=== PATIENT | female | born 1965 | race Hispanic/Latino ===

== ENCOUNTER 2016-07-09 22:05 | Emergency (ER) | payer MEDICAID, OTHER ==
[2016-07-09 22:05] VITALS: BMI 25.6
[2016-07-09 22:14] VITALS: BP 111/72; PULSE 100; RESP 22; TEMP 97.9; O2SAT 89
[2016-07-09 23:38] LABS: BASO # 0.1 K/uL (0.0-0.2); BASO % 0.7 % (0.0-2.0); EOS # 0.1 K/uL (0.0-0.7); EOS % 1.1 % (0.0-4.0); HEMATOCRIT 44.6 % (34.0-47.0); LYMPH # 3.4 K/uL (1.0-4.3); LYMPH % 35.8 % (20.0-40.0); MEAN CELL VOLUME 96.6 fL (81.0-99.0); MEAN CORPUSCULAR HEMOGLOBIN 32.1 pg (27.0-31.0); MEAN CORPUSCULAR HGB CONC 33.2 g/dL (33.0-37.0); MEAN PLATELET VOLUME 7.8 fL (7.2-11.7); MONO # 1.2 K/uL (0.0-0.8); MONO % 12.8 % (0.0-10.0); RED CELL DISTRIBUTION WIDTH 15.2 % (11.5-14.5); WHITE BLOOD COUNT 9.5 K/uL (4.8-10.8)
[2016-07-09 23:46] LABS: CHLORIDE 96 mmol/L (98-107)
[2016-07-09 23:47] LABS: POTASSIUM 3.5 mmol/L (3.6-5.2); SODIUM 133 mmol/L (132-148)
[2016-07-09 23:49] LABS: ALB/GLOB RATIO 1.3 (1.0-2.1); AST/SGOT 24 U/L (14-36); BILIRUBIN,TOTAL 0.5 mg/dL (0.2-1.3); BLOOD UREA NITROGEN 5 mg/dL (7-17); CARBON DIOXIDE 25 mmol/L (22-30); GFR AFRICAN-AMERICAN > 60; TOTAL PROTEIN 6.7 g/dL (6.3-8.3)
[2016-07-09 23:50] LABS: ALCOHOL SERUM 287 mg/dl (0-10); ALKALINE PHOSPHATASE 76 U/L (38-126); ALT/SGPT 18 U/L (9-52); CALCIUM 8.1 mg/dl (8.6-10.4); GLUCOSE,RANDOM 102 mg/dL (65-105)
--- NOTE | 2016-07-10 07:55 | RAD ---
HISTORY: SOB COMPARISON: 01/25/2016 TECHNIQUE: Chest PA and lateral FINDINGS: LUNGS: No active pulmonary disease. PLEURA: No significant pleural effusion identified. No pneumothorax apparent. CARDIOVASCULAR: Normal. OSSEOUS STRUCTURES: Thoracic spondylosis VISUALIZED UPPER ABDOMEN: Normal. OTHER FINDINGS: None. IMPRESSION: No active disease.
--- NOTE | 2016-07-14 19:07 | C.PDOC ---
Chief Complaint (Nursing): Cough, Cold, Congestion History Per: Patient History/Exam Limitations: no limitations Onset/Duration Of Symptoms: Days Current Symptoms Are (Timing): Still Present Location Of Pain: None Sick Contacts (Context): None Associated Symptoms: Cough. denies: Fever, Chills, Sore Throat, Sputum Severity: Mild Pain Scale Rating Of: 0 Recent travel outside of the [place]: No Additional History Per: Patient Past Medical History Vital Signs: Last Vital Signs Temp 97.9 F 07/09/16 22:10 Pulse 100 H 07/09/16 22:10 Resp 22 07/09/16 22:10 BP 111/72 07/09/16 22:10 Pulse Ox 89 L 07/14/16 19:09 - Medical History PMH: Asthma, COPD, HTN, Hypercholesterolemia, Pneumonia, Seizures Denies: HIV, Chronic Kidney Disease, Sexually Transmitted Disease Surgical History: No Surg Hx - [facility] Procedures ALCOHOL DETOXIFICATION (07/04/14) INTRODUCE OF OTH THERAP SUBST INTO RESP TRACT, VIA OPENING (12/01/15) NEBULIZER THERAPY (05/12/14) Family History: States: Unknown Family Hx - Social History Hx Tobacco Use: Yes Hx Alcohol Use: Yes Hx Substance Use: No - Immunization History Hx Tetanus Toxoid Vaccination: No Hx Influenza Vaccination: Yes (2013) Hx Pneumococcal Vaccination: Yes Review Of Systems Cardiovascular: Negative for: Chest Pain, Palpitations, Orthopnea, Paroxysmal Noc. Dyspnea Respiratory: Positive for: Cough. Negative for: Shortness of Breath, Hemoptysis Gastrointestinal: Negative for: Nausea, Diarrhea Genitourinary: Negative for: Dysuria, Frequency Musculoskeletal: Negative for: Neck Pain, Shoulder Pain, Arm Pain Skin: Negative for: Rash Neurological: Negative for: Weakness, Numbness, Incoordination Psych: Negative for: Anxiety Physical Exam - Physical Exam Appears: Non-toxic Skin: Normal Color Head: Atraumatic Eye(s): bilateral: Normal Inspection, PERRL, EOMI Nose: Normal Throat: Normal Neck: Normal Chest: Symmetrical, No Deformity, No Tenderness, No Ecchymosis, No Subcutaneous Emphysema Cardiovascular: Rhythm Regular, No Edema, No Friction Rub, No Murmur Respiratory: Normal Breath Sounds Gastrointestinal/Abdominal: Normal Exam Back: Normal Inspection ED Course And Treatment - Laboratory Results Result Diagrams: 07/09/16 23:35 05/17/17 23:35 O2 Sat by Pulse Oximetry: 89 Disposition - Disposition Referrals: [facility] at [facility] [Outside] Disposition: HOME/ ROUTINE Disposition Time: 05:30 Condition: STABLE Instructions: Upper Respiratory Infection (ED) - POA Present On Arrival: None - Clinical Impression Clinical Impression: Asthma, Anxiety
== END 2016-07-10 05:30 | disposition home or self-care (01) ==
LOC: C.ER 22:05
DX: J45.909 Unspecified asthma, uncomplicated (principal); Z72.0 Tobacco use; F41.9 Anxiety disorder, unspecified

== ENCOUNTER 2016-07-16 12:48 | Inpatient (IN) | payer MEDICAID ==
[2016-07-16 12:48] VITALS: BMI 25.6
--- NOTE | 2016-07-16 13:00 | C.PDOC ---
History Of Present Illness 50-year-old female, PMHx includes Asthma, COPD, Hypertension, Hypercholesterolemia, Pneumonia, and Seizures, presents to the emergency department with complaints of a productive cough x2 weeks, that is associated with wheezing. Patient states she finished Levaquin two days ago, and her doctor put her on steroids yesterday. Patients home meds are not helping. Denies fevers, nausea/vomiting. No other complaints at this time. Time Seen by Provider: 07/16/16 12:59 Chief Complaint (Nursing): Shortness Of Breath History Per: Patient History/Exam Limitations: no limitations Onset/Duration Of Symptoms: Days Past Medical History Reviewed: Historical Data, Nursing Documentation, Vital Signs Vital Signs: Last Vital Signs Temp 98.0 F 07/16/16 12:56 Pulse 106 H 07/16/16 12:56 Resp 26 H 07/16/16 13:52 BP 129/90 07/16/16 12:56 Pulse Ox 89 L 07/16/16 14:21 - Medical History PMH: Asthma, COPD, HTN, Hypercholesterolemia, Pneumonia, Seizures Denies: HIV, Chronic Kidney Disease, Sexually [facility]mitted [facility] ALCOHOL DETOXIFICATION (07/04/14) INTRODUCE OF OTH THERAP SUBST INTO RESP TRACT, VIA OPENING (12/01/15) NEBULIZER THERAPY (05/12/14) Family History: States: No Known Family Hx - Social History Hx Tobacco Use: Yes Hx Alcohol Use: Yes Hx Substance Use: No - Immunization History Hx Tetanus Toxoid Vaccination: No Hx Influenza Vaccination: Yes (2013) Hx Pneumococcal Vaccination: Yes Review Of Systems Constitutional: Negative for: Fever Cardiovascular: Negative for: Chest Pain, Palpitations Respiratory: Positive for: Cough, Sputum, Wheezing Gastrointestinal: Negative for: Nausea, Vomiting Physical Exam - Physical Exam Appears: Non-toxic, No Acute Distress Skin: Warm, Dry, No Rash Head: Atraumatic Eye(s): bilateral: Normal Inspection, PERRL Nose: Normal Oral Mucosa: Moist Neck: Normal ROM Chest: Symmetrical Cardiovascular: Rhythm Regular, No Murmur Respiratory: No Accessory Muscle Use, Wheezing Extremity: Normal ROM Neurological/Psych: Oriented x3 ED Course And Treatment - Laboratory Results Result Diagrams: 07/16/16 13:42 07/16/16 13:42 O2 Sat by Pulse Oximetry: 89 Medical Decision Making Medical Decision Making: EKG Rate 95bpm Rhythm NSR Interpret Normal axis. Normal intervals. no acute ischemia. Chest x-ray: No acute findings. 1428 pt still w sig wheezing and sob despite duoneb x3. will admit for failed outpt rx of copd. Disposition - Disposition Disposition: HOSPITALIZED Disposition Time: 14:32 Condition: STABLE - Clinical Impression Clinical Impression: COPD exacerbation - Scribe Statement The provider has reviewed the documentation as recorded by the Estrella Butcher All medical record entries made by the Rhondaibnehemias were at my direction and personally dictated by me. I have reviewed the chart and agree that the record accurately reflects my personal performance of the history, physical exam, medical decision making, and the department course for this patient. I have also personally directed, reviewed, and agree with the discharge instructions and disposition.
[2016-07-16] MEDS ORDERED: Albuterol-Ipratrop 3 mg / 0.5 (3 ml) UD ONE ×3 (13:08→13:55)
[2016-07-16] MEDS ORDERED: Azithromycin 500 MG in Sodium Chloride 0.9% 250 ML IVPB STA (13:12)
[2016-07-16] MEDS: Albuterol-Ipratrop 3 mg / 0.5 (3 ml) UD IH SCH ×3 (13:30→13:55)
[2016-07-16] MEDS ORDERED: Azithromycin 500mg/250ML NS 500 MG/250 ML BAG IVPB ONE (13:34)
[2016-07-16 13:51] LABS: BASO % 0.2 % (0.0-2.0); EOS % 0.3 % (0.0-4.0); HEMATOCRIT 46.9 % (34.0-47.0); LYMPH # 3.9 K/uL (1.0-4.3); LYMPH % 29.4 % (20.0-40.0); MEAN CELL VOLUME 95.9 fL (81.0-99.0); MEAN CORPUSCULAR HEMOGLOBIN 32.5 pg (27.0-31.0); MEAN CORPUSCULAR HGB CONC 33.9 g/dL (33.0-37.0); MEAN PLATELET VOLUME 8.2 fL (7.2-11.7); MONO # 1.1 K/uL (0.0-0.8); MONO % 8.3 % (0.0-10.0); RED CELL DISTRIBUTION WIDTH 14.9 % (11.5-14.5); WHITE BLOOD COUNT 13.3 K/uL (4.8-10.8)
[2016-07-16 14:00] LABS: CHLORIDE 97 mmol/L (98-107); POTASSIUM 3.5 mmol/L (3.6-5.2); SODIUM 134 mmol/L (132-148)
--- NOTE | 2016-07-16 14:01 | RAD ---
HISTORY: sob COMPARISON: 07/09/2016 FINDINGS: LUNGS: No active pulmonary disease. PLEURA: No significant pleural effusion identified, no pneumothorax apparent. CARDIOVASCULAR: Normal. OSSEOUS STRUCTURES: No significant abnormalities. VISUALIZED UPPER ABDOMEN: Normal. OTHER FINDINGS: None. IMPRESSION: No active disease.
[2016-07-16 14:02] LABS: ALB/GLOB RATIO 1.3 (1.0-2.1); ALKALINE PHOSPHATASE 92 U/L (38-126); AST/SGOT 23 U/L (14-36); BILIRUBIN,TOTAL 0.9 mg/dL (0.2-1.3); CARBON DIOXIDE 28 mmol/L (22-30); GFR AFRICAN-AMERICAN > 60; TOTAL PROTEIN 6.6 g/dL (6.3-8.3)
[2016-07-16 14:03] LABS: ALT/SGPT 26 U/L (9-52); BLOOD UREA NITROGEN 16 mg/dL (7-17); GLUCOSE,RANDOM 92 mg/dL (65-105)
[2016-07-16 14:04] LABS: CALCIUM 8.8 mg/dl (8.6-10.4)
[2016-07-16] MEDS ORDERED: Albuterol 0.083% Inhal Sol (2.5 mg/3 mL) UD INH PRN (14:34)
[2016-07-16] MEDS ORDERED: Albuterol 0.083% Inhal Sol (2.5 mg/3 mL) UD INH SCH (16:00)
[2016-07-16] MEDS ORDERED: Ipratropium 0.02% Inhal Soln (0.5 mg/2.5 ml) UD IH ONE (17:16)
[2016-07-16] MEDS ORDERED: Albuterol 0.083% Inhal Sol (2.5 mg/3 mL) UD ONE (17:16)
[2016-07-16] MEDS ORDERED: Potassium Chloride 20 mEq ER Tab PO ONE ×2 (17:45→17:52)
[2016-07-16] MEDS ORDERED: Ipratropium 0.02% Inhal Soln (0.5 mg/2.5 ml) UD IH SCH (18:00)
[2016-07-16] MEDS: Albuterol-Ipratrop 3 mg / 0.5 (3 ml) UD INH SCH (21:34)
--- NOTE | 2016-07-17 00:09 | CP.PCM.HP ---
History of Present Illness - History of Present Illness History of Present Illness: CC: shortness of breath x 2 weeks HPI: 50-year-old white female, PMHx includes Asthma, COPD, chronic smoker, Hypertension, Hypercholesterolemia, Pneumonia, and Seizures, presents to the emergency department with complaints of a productive cough x2 weeks , that is associated with wheezing and thick greenish sputum Patient states she finished Levaquin two days ago, and her doctor put her on steroids yesterday. Patients home meds are not helping. Denies fevers, nausea/vomiting. No other complaints at this time. Present on Admission - Present on Admission Any Indicators Present on Admission: No Past Patient History - Infectious Disease Hx of Infectious Diseases: None - Past Medical History & Family History Past Medical History?: Yes - Past Social History Smoking Status: Heavy Smoker > 10 Cigarettes Daily - CARDIAC Hx Cardiac Disorders: No - PULMONARY Hx Asthma: Yes Hx Chronic Obstructive Pulmonary Disease (COPD): Yes Hx Pneumonia: Yes - NEUROLOGICAL Hx Neurological Disorder: No - HEENT Hx HEENT Problems: Yes Other/Comment: wear eyeglasses - RENAL Hx Chronic Kidney Disease: No - ENDOCRINE/METABOLIC Hx Endocrine Disorders: No - HEMATOLOGICAL/ONCOLOGICAL Hx Blood Disorders: No - INTEGUMENTARY Hx Dermatological Problems: No - MUSCULOSKELETAL/RHEUMATOLOGICAL Hx Falls: No - GASTROINTESTINAL Hx Gastrointestinal Disorders: No - GENITOURINARY/GYNECOLOGICAL Hx Genitourinary Disorders: No - PSYCHIATRIC Hx Substance Use: No - SURGICAL HISTORY Hx Surgeries: No - ANESTHESIA Hx Anesthesia: No Hx Anesthesia Reactions: No Hx Malignant Hyperthermia: No Has any member of the family had a problem w/ anesthesia?: No Meds Home Medications: Home Medication List Medication Instructions Recorded Confirmed Type Amoxicillin/Clavulanate [Augmentin 1 tab PO BID #14 tab 07/22/16 Rx 875 MG-125 MG] Fluticasone/Vilanterol [Breo 1 each IH DAILY #1 blst.w.dev 07/22/16 Rx Ellipta 100-25 Mcg INH] Guaifenesin [Mucinex] 1,200 mg PO BID #30 tab.er.12h 07/22/16 Rx Methylprednisolone [Medrol Dose 4 mg PO DAILY #21 mg 07/22/16 Rx Pack (21 tabs)] Allergies/Adverse Reactions: Allergies Allergy/AdvReac Type Severity Reaction Status Date / Time apple Allergy Severe ITCHING Verified 07/16/16 13:03 carrot Allergy Severe RASH Verified 07/16/16 20:47 peach Allergy Severe ITCHING Verified 07/16/16 13:03 peanut Allergy Severe ITCHING Verified 07/16/16 13:03 plum Allergy Severe ITCHING Verified 07/16/16 13:03 Physical Exam - Constitutional Appears: In Acute Distress Additional comments: poor hygeine in moderate resp distress shaking - Eye Exam Eye Exam: EOMI, Normal appearance, PERRL Pupil Exam: NORMAL ACCOMODATION, PERRL - ENT Exam ENT Exam: Mucous Membranes Dry - Neck Exam Neck exam: Positive for: Normal Inspection - Respiratory Exam Respiratory Exam: Decreased Breath Sounds, Rhonchi, Wheezes - Cardiovascular Exam Cardiovascular Exam: REGULAR RHYTHM - GI/Abdominal Exam GI & Abdominal Exam: Normal Bowel Sounds, Soft. absent: Tenderness - Neurological Exam Neurological exam: Alert, CN II-XII Intact, Normal Gait, Oriented x3, Reflexes Normal - Psychiatric Exam Psychiatric exam: Normal Affect, Normal Mood - Skin Skin Exam: Dry Additional comments: flushed skin Results - Vital Signs Recent Vital Signs: Last Vital Signs Temp 98.1 F 07/16/16 18:57 Pulse 88 07/16/16 18:57 Resp 20 07/16/16 18:57 BP 142/77 07/16/16 18:57 Pulse Ox 95 07/16/16 18:57 - Labs Result Diagrams: 07/20/16 10:05 07/20/16 10:05 Assessment & Plan (1) COPD exacerbation Assessment and Plan: nebulizer salmedrol advair pulmonary consult monitor pt Status: Acute
[2016-07-17] MEDS: Albuterol-Ipratrop 3 mg / 0.5 (3 ml) UD INH SCH ×4 (01:16→19:22)
[2016-07-17] MEDS ORDERED: Tiotropium 18 mcg Cap For Inhalation IH SCH (08:00)
[2016-07-17] MEDS: Enoxaparin 40 mg Syringe SC SCH (09:26)
[2016-07-17 16:29] VITALS: RESP 20
--- NOTE | 2016-07-17 16:57 | CP.PCM.CON ---
History of Present Illness - History of Present Illness History of Present Illness: reason for consultation: shortness of breath and cough 50-year-old female PMHx includes COPD, Hypertension, Hypercholesterolemia, Pneumonia, aand long history of smoking presents to the emergency department with complaints of a productive cough x2 weeks, that is associated with wheezing. Patient states she finished Levaquin two days ago, and her doctor put her on steroids yesterday. Review of Systems - Review of Systems All systems: reviewed and no additional remarkable complaints except (shortness of breath and cough productive of yellowish) Past Patient History - Infectious Disease Hx of Infectious Diseases: None - Past Medical History & Family History Past Medical History?: Yes - Past Social History Smoking Status: Heavy Smoker > 10 Cigarettes Daily - CARDIAC Hx Cardiac Disorders: No - PULMONARY Hx Asthma: Yes Hx Chronic Obstructive Pulmonary Disease (COPD): Yes Hx Pneumonia: Yes - NEUROLOGICAL Hx Neurological Disorder: No - HEENT Hx HEENT Problems: Yes Other/Comment: wear eyeglasses - RENAL Hx Chronic Kidney Disease: No - ENDOCRINE/METABOLIC Hx Endocrine Disorders: No - HEMATOLOGICAL/ONCOLOGICAL Hx Blood Disorders: No - INTEGUMENTARY Hx Dermatological Problems: No - MUSCULOSKELETAL/RHEUMATOLOGICAL Hx Falls: No - GASTROINTESTINAL Hx Gastrointestinal Disorders: No - GENITOURINARY/GYNECOLOGICAL Hx Genitourinary Disorders: No - PSYCHIATRIC Hx Substance Use: No - SURGICAL HISTORY Hx Surgeries: No - ANESTHESIA Hx Anesthesia: No Hx Anesthesia Reactions: No Hx Malignant Hyperthermia: No Has any member of the family had a problem w/ anesthesia?: No Meds Allergies/Adverse Reactions: Allergies Allergy/AdvReac Type Severity Reaction Status Date / Time apple Allergy Severe ITCHING Verified 07/16/16 13:03 carrot Allergy Severe RASH Verified 07/16/16 20:47 peach Allergy Severe ITCHING Verified 07/16/16 13:03 peanut Allergy Severe ITCHING Verified 07/16/16 13:03 plum Allergy Severe ITCHING Verified 07/16/16 13:03 - Medications Medications: Current Medications Albuterol/Ipratropium (Duoneb 3 Mg/0.5 Mg (3 Ml) Ud) 3 ml INH RQ6 [facility] Last Admin: 07/17/16 13:25 Dose: 3 ml Enoxaparin Sodium (Lovenox) 40 mg SC DAILY [facility] Last Admin: 07/17/16 09:26 Dose: 40 mg Azithromycin (Zithromax 500mg In Ns Addvantage) 500 mg in 250 mls @ 167 mls/hr IVPB Q24H [facility] Ceftriaxone Sodium 1 gm/ (Sodium Chloride) 100 mls @ 100 mls/hr IVPB DAILY [facility] Last Admin: 07/17/16 09:26 Dose: 100 mls/hr Methylprednisolone (Solu-Medrol) 40 mg IVP Q8 [facility] Montelukast Sodium (Singulair) 10 mg PO DAILY [facility] Last Admin: 07/17/16 09:26 Dose: 10 mg Pantoprazole Sodium (Protonix Inj) 40 mg IVP DAILY [facility] Last Admin: 07/17/16 09:26 Dose: 40 mg Tiotropium [place] (Spiriva) 18 mcg IH RQD [facility] Physical Exam - Constitutional Appears: No Acute Distress - Head Exam Head Exam: ATRAUMATIC, NORMOCEPHALIC - Eye Exam Eye Exam: Normal appearance - ENT Exam ENT Exam: Mucous Membranes Moist - Neck Exam Neck exam: Positive for: Full Rom, Normal Inspection - Respiratory Exam Respiratory Exam: Rhonchi, Wheezes - Cardiovascular Exam Cardiovascular Exam: REGULAR RHYTHM Results - Vital Signs Recent Vital Signs: Last Vital Signs Temp 98.7 F 07/17/16 15:14 Pulse 80 07/17/16 15:14 Resp 20 07/17/16 15:14 BP 126/70 07/17/16 15:14 Pulse Ox 97 07/17/16 15:14 - Labs Result Diagrams: 07/16/16 13:42 07/16/16 13:42 Assessment & Plan (1) COPD exacerbation Status: Acute Comment: continue IV steroids, antibiotics, nebulizer treatment and antitussives. Will need pulmonary function test as outpatient. Patient advised to quit smoking
[2016-07-17] MEDS ORDERED: Azithromycin 500mg/250ML NS 500 MG/250 ML BAG IVPB SCH (18:00)
[2016-07-17] MEDS: MethylPREDNISolone 40 mg Vial IVP SCH (21:31)
--- NOTE | 2016-07-17 22:50 | CP.PCM.PN ---
Subjective - Date & Time of Evaluation Date of Evaluation: 07/17/16 Time of Evaluation: 12:07 - Subjective Subjective: Pt is coughing, congested with greenish sputum ,pt is on antibiotics Objective - Vital Signs/Intake and Output Vital Signs (last 24 hours): Temp Pulse Resp BP Pulse Ox 98.7 F 80 20 126/70 97 07/17/16 15:14 07/17/16 15:14 07/17/16 15:14 07/17/16 15:14 07/17/16 15:14 - Medications Medications: Current Medications Albuterol/Ipratropium (Duoneb 3 Mg/0.5 Mg (3 Ml) Ud) 3 ml INH RQ6 [facility] Last Admin: 07/17/16 19:22 Dose: 3 ml Enoxaparin Sodium (Lovenox) 40 mg SC DAILY [facility] Last Admin: 07/17/16 09:26 Dose: 40 mg Azithromycin (Zithromax 500mg In Ns Addvantage) 500 mg in 250 mls @ 167 mls/hr IVPB Q24H [facility] Last Admin: 07/17/16 17:37 Dose: 167 mls/hr Ceftriaxone Sodium 1 gm/ (Sodium Chloride) 100 mls @ 100 mls/hr IVPB DAILY [facility] Last Admin: 07/17/16 09:26 Dose: 100 mls/hr Methylprednisolone (Solu-Medrol) 40 mg IVP Q8 [facility] Last Admin: 07/17/16 21:31 Dose: 40 mg Montelukast Sodium (Singulair) 10 mg PO DAILY [facility] Last Admin: 07/17/16 09:26 Dose: 10 mg Pantoprazole Sodium (Protonix Inj) 40 mg IVP DAILY [facility] Last Admin: 07/17/16 09:26 Dose: 40 mg Tiotropium [place] (Spiriva) 18 mcg IH RQD [facility] - Constitutional Appears: No Acute Distress - Head Exam Head Exam: ATRAUMATIC, NORMAL INSPECTION, NORMOCEPHALIC - Eye Exam Eye Exam: EOMI, Normal appearance, PERRL Pupil Exam: NORMAL ACCOMODATION, PERRL - Respiratory Exam Respiratory Exam: Clear to Ausculation Bilateral, NORMAL BREATHING PATTERN - Cardiovascular Exam Cardiovascular Exam: REGULAR RHYTHM, +S1, +S2. absent: Murmur - GI/Abdominal Exam GI & Abdominal Exam: Soft, Normal Bowel Sounds. absent: Tenderness - Neurological Exam Neurological Exam: Alert, Awake, CN II-XII Intact, Normal Gait, Oriented x3 Assessment and Plan (1) COPD exacerbation Status: Acute
--- NOTE | 2016-07-17 23:00 | CARD ---
APPROVED REPORT EKG Measurement Heart [id number] [id number] <Conclusion> Normal sinus rhythm Possible Left atrial enlargement Prolonged QT Abnormal ECG
[2016-07-18] MEDS: Albuterol-Ipratrop 3 mg / 0.5 (3 ml) UD INH SCH ×4 (01:10→19:56)
[2016-07-18] MEDS: MethylPREDNISolone 40 mg Vial IVP SCH ×3 (05:09→21:09)
[2016-07-18] MEDS: Enoxaparin 40 mg Syringe SC SCH (09:15)
--- NOTE | 2016-07-18 12:49 | CP.PCM.PN ---
Subjective - Date & Time of Evaluation Date of Evaluation: 07/18/16 Time of Evaluation: 08:30 - Subjective Subjective: patient seen and examined. Still complaining of shtness of breath and cough Could not sleep last night because of cough Objective - Vital Signs/Intake and Output Vital Signs (last 24 hours): Temp Pulse Resp BP Pulse Ox 97.7 F 70 20 160/90 H 95 07/18/16 08:36 07/18/16 08:36 07/18/16 08:36 07/18/16 08:36 07/18/16 08:36 Intake and Output: 07/18/16 07/18/16 06:59 18:59 Intake Total 800 Balance 800 - Medications Medications: Current Medications Albuterol/Ipratropium (Duoneb 3 Mg/0.5 Mg (3 Ml) Ud) 3 ml INH RQ6 [facility] Last Admin: 07/18/16 07:47 Dose: 3 ml Enoxaparin Sodium (Lovenox) 40 mg SC DAILY [facility] Last Admin: 07/18/16 09:15 Dose: 40 mg Guaifenesin (Robitussin) 200 mg PO Q4H PRN PRN Reason: Cough and congestion Ceftriaxone Sodium 1 gm/ (Sodium Chloride) 100 mls @ 100 mls/hr IVPB DAILY [facility] Last Admin: 07/18/16 09:16 Dose: 100 mls/hr Azithromycin 500 mg/ Sodium (Chloride) 250 mls @ 167 mls/hr IVPB Q24H [facility] Methylprednisolone (Solu-Medrol) 40 mg IVP Q8 [facility] Last Admin: 07/18/16 05:09 Dose: 40 mg Montelukast Sodium (Singulair) 10 mg PO DAILY [facility] Last Admin: 07/18/16 09:16 Dose: 10 mg Pantoprazole Sodium (Protonix Inj) 40 mg IVP DAILY [facility] Last Admin: 07/18/16 09:16 Dose: 40 mg Tiotropium [place] (Spiriva) 18 mcg IH RQD [facility] - Constitutional Appears: No Acute Distress - Head Exam Head Exam: ATRAUMATIC, NORMOCEPHALIC - Eye Exam Eye Exam: Normal appearance - ENT Exam ENT Exam: Mucous Membranes Moist - Neck Exam Neck Exam: Full ROM, Normal Inspection - Respiratory Exam Respiratory Exam: Rhonchi, Wheezes - Cardiovascular Exam Cardiovascular Exam: REGULAR RHYTHM - GI/Abdominal Exam GI & Abdominal Exam: Soft, Normal Bowel Sounds Assessment and Plan (1) COPD exacerbation Assessment & Plan: continue IV steroids,, nebulizer treatment, antitussive and antibiotics Status: Acute
[2016-07-18] MEDS: guaiFENesin 200 mg/10 ml Syrup UD PO PRN (13:35)
[2016-07-18] MEDS: Azithromycin 500 MG in Sodium Chloride 0.9% 250 ML IVPB SCH (17:39)
--- NOTE | 2016-07-18 22:55 | CP.PCM.PN ---
Subjective - Date & Time of Evaluation Date of Evaluation: 07/18/16 Time of Evaluation: 07:36 - Subjective Subjective: Pt seen & evalauted, is feeling better, on medical management Objective - Vital Signs/Intake and Output Vital Signs (last 24 hours): Temp Pulse Resp BP Pulse Ox 98.6 F 68 20 133/76 94 L 07/18/16 17:00 07/18/16 17:00 07/18/16 17:00 07/18/16 17:00 07/18/16 17:00 - Medications Medications: Current Medications Albuterol/Ipratropium (Duoneb 3 Mg/0.5 Mg (3 Ml) Ud) 3 ml INH RQ6 [facility] Last Admin: 07/18/16 19:56 Dose: 3 ml Enoxaparin Sodium (Lovenox) 40 mg SC DAILY [facility] Last Admin: 07/18/16 09:15 Dose: 40 mg Guaifenesin (Robitussin) 200 mg PO Q4H PRN PRN Reason: Cough and congestion Last Admin: 07/18/16 13:35 Dose: 200 mg Ceftriaxone Sodium 1 gm/ (Sodium Chloride) 100 mls @ 100 mls/hr IVPB DAILY [facility] Last Admin: 07/18/16 09:16 Dose: 100 mls/hr Azithromycin 500 mg/ Sodium (Chloride) 250 mls @ 167 mls/hr IVPB Q24H [facility] Last Admin: 07/18/16 17:39 Dose: 167 mls/hr Methylprednisolone (Solu-Medrol) 40 mg IVP Q8 [facility] Last Admin: 07/18/16 21:09 Dose: 40 mg Montelukast Sodium (Singulair) 10 mg PO DAILY [facility] Last Admin: 07/18/16 09:16 Dose: 10 mg Pantoprazole Sodium (Protonix Inj) 40 mg IVP DAILY [facility] Last Admin: 07/18/16 09:16 Dose: 40 mg Tiotropium [place] (Spiriva) 18 mcg IH RQD [facility] - Constitutional Appears: Well - Head Exam Head Exam: NORMAL INSPECTION - Eye Exam Eye Exam: EOMI, Normal appearance, PERRL Pupil Exam: NORMAL ACCOMODATION, PERRL - Respiratory Exam Respiratory Exam: Decreased Breath Sounds, Rhonchi - Cardiovascular Exam Cardiovascular Exam: REGULAR RHYTHM, +S1, +S2. absent: Murmur - GI/Abdominal Exam GI & Abdominal Exam: Soft, Normal Bowel Sounds. absent: Tenderness Assessment and Plan (1) COPD exacerbation Status: Acute
[2016-07-19] MEDS: Albuterol-Ipratrop 3 mg / 0.5 (3 ml) UD INH SCH ×4 (01:24→19:46)
[2016-07-19] MEDS: MethylPREDNISolone 40 mg Vial IVP SCH ×3 (05:40→21:09)
[2016-07-19] MEDS: guaiFENesin 200 mg/10 ml Syrup UD PO PRN ×3 (09:31→21:09)
[2016-07-19] MEDS: Enoxaparin 40 mg Syringe SC SCH (09:31)
[2016-07-19] MEDS: guaiFENesin 600 mg ER Tab PO SCH (17:27)
[2016-07-19] MEDS: Azithromycin 500 MG in Sodium Chloride 0.9% 250 ML IVPB SCH (17:27)
--- NOTE | 2016-07-19 23:31 | CP.PCM.PN ---
Subjective - Date & Time of Evaluation Date of Evaluation: 07/19/16 Time of Evaluation: 07:38 - Subjective Subjective: Pt seen and ecamined, is coughing and wheezing, less short of breath Objective - Vital Signs/Intake and Output Vital Signs (last 24 hours): Temp Pulse Resp BP Pulse Ox 98.2 F 81 20 136/80 95 07/19/16 16:33 07/19/16 16:33 07/19/16 16:33 07/19/16 16:33 07/19/16 16:33 Intake and Output: 07/19/16 07/20/16 18:59 06:59 Intake Total 900 Balance 900 - Medications Medications: Current Medications Albuterol/Ipratropium (Duoneb 3 Mg/0.5 Mg (3 Ml) Ud) 3 ml INH RQ6 [facility] Last Admin: 07/19/16 19:46 Dose: 3 ml Enoxaparin Sodium (Lovenox) 40 mg SC DAILY [facility] Last Admin: 07/19/16 09:31 Dose: 40 mg Guaifenesin (Robitussin) 200 mg PO Q4H PRN PRN Reason: Cough and congestion Last Admin: 07/19/16 21:09 Dose: 200 mg Guaifenesin (Mucinex [place]) 600 mg PO BID [facility] Last Admin: 07/19/16 17:27 Dose: 600 mg Ceftriaxone Sodium 1 gm/ (Sodium Chloride) 100 mls @ 100 mls/hr IVPB DAILY [facility] Last Admin: 07/19/16 09:31 Dose: 100 mls/hr Azithromycin 500 mg/ Sodium (Chloride) 250 mls @ 167 mls/hr IVPB Q24H [facility] Last Admin: 07/19/16 17:27 Dose: 167 mls/hr Methylprednisolone (Solu-Medrol) 40 mg IVP Q8 [facility] Last Admin: 07/19/16 21:09 Dose: 40 mg Montelukast Sodium (Singulair) 10 mg PO DAILY [facility] Last Admin: 07/19/16 09:32 Dose: 10 mg Pantoprazole Sodium (Protonix Inj) 40 mg IVP DAILY [facility] Last Admin: 07/19/16 09:32 Dose: 40 mg Tiotropium [place] (Spiriva) 18 mcg IH RQD [facility] - Constitutional Appears: No Acute Distress - Head Exam Head Exam: ATRAUMATIC, NORMAL INSPECTION, NORMOCEPHALIC - Eye Exam Eye Exam: EOMI, Normal appearance, PERRL Pupil Exam: NORMAL ACCOMODATION, PERRL - Respiratory Exam Respiratory Exam: Decreased Breath Sounds, Rhonchi, Wheezes - Cardiovascular Exam Cardiovascular Exam: REGULAR RHYTHM, +S1, +S2. absent: Murmur - GI/Abdominal Exam GI & Abdominal Exam: Soft, Normal Bowel Sounds. absent: Tenderness Assessment and Plan (1) COPD exacerbation Status: Acute
[2016-07-20] MEDS: Albuterol-Ipratrop 3 mg / 0.5 (3 ml) UD INH SCH ×4 (01:45→19:33)
[2016-07-20] MEDS: MethylPREDNISolone 40 mg Vial IVP SCH ×3 (05:57→22:23)
[2016-07-20] MEDS: Enoxaparin 40 mg Syringe SC SCH (09:14)
[2016-07-20] MEDS: guaiFENesin 600 mg ER Tab PO SCH ×2 (09:15→17:33)
[2016-07-20 10:10] LABS: HEMATOCRIT 46.6 % (34.0-47.0); MEAN CELL VOLUME 96.9 fL (81.0-99.0); MEAN CORPUSCULAR HGB CONC 33.1 g/dL (33.0-37.0); MEAN PLATELET VOLUME 9.2 fL (7.2-11.7); RED CELL DISTRIBUTION WIDTH 14.8 % (11.5-14.5); WHITE BLOOD COUNT 15.6 K/uL (4.8-10.8)
[2016-07-20 10:22] LABS: CHLORIDE 95 mmol/L (98-107); POTASSIUM 3.8 mmol/L (3.6-5.2); SODIUM 133 mmol/L (132-148)
[2016-07-20 10:25] LABS: BLOOD UREA NITROGEN 20 mg/dL (7-17); CARBON DIOXIDE 31 mmol/L (22-30); GFR AFRICAN-AMERICAN > 60; GLUCOSE,RANDOM 167 mg/dL (65-105)
[2016-07-20 10:26] LABS: CALCIUM 8.3 mg/dl (8.6-10.4)
--- NOTE | 2016-07-20 10:42 | RAD ---
HISTORY: Pneumonia. COMPARISON: 07/16/2016. TECHNIQUE: Chest PA and lateral FINDINGS: LUNGS: No active pulmonary disease. PLEURA: No significant pleural effusion identified. No pneumothorax apparent. CARDIOVASCULAR: No radiographic findings to suggest acute or significant cardiovascular disease. OSSEOUS STRUCTURES: No significant abnormalities. VISUALIZED UPPER ABDOMEN: Normal. OTHER FINDINGS: None. IMPRESSION: No active disease. No significant interval change compared to the prior examination(s).
--- NOTE | 2016-07-20 12:01 | CP.PCM.PN ---
Subjective - Date & Time of Evaluation Date of Evaluation: 07/20/16 Time of Evaluation: 07:39 - Subjective Subjective: Pt seen & evaluated, is feeling better Objective - Vital Signs/Intake and Output Vital Signs (last 24 hours): Temp Pulse Resp BP Pulse Ox 98.1 F 62 20 165/87 H 96 07/20/16 08:25 07/20/16 08:25 07/20/16 08:25 07/20/16 08:25 07/20/16 08:25 Intake and Output: 07/20/16 07/20/16 06:59 18:59 Intake Total 1260 Balance 1260 - Medications Medications: Current Medications Albuterol/Ipratropium (Duoneb 3 Mg/0.5 Mg (3 Ml) Ud) 3 ml INH RQ6 [facility] Last Admin: 07/20/16 07:28 Dose: 3 ml Enoxaparin Sodium (Lovenox) 40 mg SC DAILY [facility] Last Admin: 07/20/16 09:14 Dose: 40 mg Guaifenesin (Robitussin) 200 mg PO Q4H PRN PRN Reason: Cough and congestion Last Admin: 07/19/16 21:09 Dose: 200 mg Guaifenesin (Mucinex La) 600 mg PO BID [facility] Last Admin: 07/20/16 09:15 Dose: 600 mg Ceftriaxone Sodium 1 gm/ (Sodium Chloride) 100 mls @ 100 mls/hr IVPB DAILY [facility] Last Admin: 07/20/16 09:14 Dose: 100 mls/hr Azithromycin 500 mg/ Sodium (Chloride) 250 mls @ 167 mls/hr IVPB Q24H [facility] Last Admin: 07/19/16 17:27 Dose: 167 mls/hr Methylprednisolone (Solu-Medrol) 40 mg IVP Q8 [facility] Last Admin: 07/20/16 05:57 Dose: 40 mg Montelukast Sodium (Singulair) 10 mg PO DAILY [facility] Last Admin: 07/20/16 09:15 Dose: 10 mg Pantoprazole Sodium (Protonix Inj) 40 mg IVP DAILY [facility] Last Admin: 07/20/16 09:15 Dose: 40 mg Tiotropium [place] (Spiriva) 18 mcg IH RQD [facility] - Labs Labs: 07/20/16 10:05 07/20/16 10:05 - Constitutional Appears: No Acute Distress - Eye Exam Eye Exam: EOMI, Normal appearance, PERRL Pupil Exam: PERRL - Respiratory Exam Respiratory Exam: Decreased Breath Sounds, Rales, Rhonchi - Cardiovascular Exam Cardiovascular Exam: REGULAR RHYTHM, +S1, +S2. absent: Murmur - GI/Abdominal Exam GI & Abdominal Exam: Soft, Normal Bowel Sounds. absent: Tenderness - Rectal Exam Rectal Exam: NORMAL INSPECTION Assessment and Plan (1) COPD exacerbation Status: Acute
--- NOTE | 2016-07-20 14:00 | CP.PCM.PN ---
Subjective - Date & Time of Evaluation Date of Evaluation: 07/20/16 Time of Evaluation: 09:00 - Subjective Subjective: Patient seen and examined. Still complaining of shortness of breath and cough Afebrile with no chest pain Objective - Vital Signs/Intake and Output Vital Signs (last 24 hours): Temp Pulse Resp BP Pulse Ox 98.1 F 62 20 165/87 H 96 07/20/16 08:25 07/20/16 08:25 07/20/16 08:25 07/20/16 08:25 07/20/16 08:25 Intake and Output: 07/20/16 07/20/16 06:59 18:59 Intake Total 1260 Balance 1260 - Medications Medications: Current Medications Albuterol/Ipratropium (Duoneb 3 Mg/0.5 Mg (3 Ml) Ud) 3 ml INH RQ6 [facility] Last Admin: 07/20/16 13:36 Dose: 3 ml Enoxaparin Sodium (Lovenox) 40 mg SC DAILY [facility] Last Admin: 07/20/16 09:14 Dose: 40 mg Guaifenesin (Robitussin) 200 mg PO Q4H PRN PRN Reason: Cough and congestion Last Admin: 07/19/16 21:09 Dose: 200 mg Guaifenesin (Mucinex La) 600 mg PO BID [facility] Last Admin: 07/20/16 09:15 Dose: 600 mg Ceftriaxone Sodium 1 gm/ (Sodium Chloride) 100 mls @ 100 mls/hr IVPB DAILY [facility] Last Admin: 07/20/16 09:14 Dose: 100 mls/hr Azithromycin 500 mg/ Sodium (Chloride) 250 mls @ 167 mls/hr IVPB Q24H [facility] Last Admin: 07/19/16 17:27 Dose: 167 mls/hr Methylprednisolone (Solu-Medrol) 40 mg IVP Q8 [facility] Last Admin: 07/20/16 13:46 Dose: 40 mg Montelukast Sodium (Singulair) 10 mg PO DAILY [facility] Last Admin: 07/20/16 09:15 Dose: 10 mg Pantoprazole Sodium (Protonix Inj) 40 mg IVP DAILY [facility] Last Admin: 07/20/16 09:15 Dose: 40 mg Tiotropium [place] (Spiriva) 18 mcg IH RQD [facility] - Labs Labs: 07/20/16 10:05 07/20/16 10:05 - Constitutional Appears: No Acute Distress - Head Exam Head Exam: ATRAUMATIC, NORMOCEPHALIC - Eye Exam Eye Exam: Normal appearance - ENT Exam ENT Exam: Mucous Membranes Moist - Neck Exam Neck Exam: Normal Inspection - Respiratory Exam Respiratory Exam: Rhonchi - Cardiovascular Exam Cardiovascular Exam: REGULAR RHYTHM - GI/Abdominal Exam GI & Abdominal Exam: Soft, Normal Bowel Sounds Assessment and Plan (1) COPD exacerbation Assessment & Plan: Continue IV steroids, nebulizer treatment and antibiotics for now Status: Acute
[2016-07-20] MEDS: Azithromycin 500 MG in Sodium Chloride 0.9% 250 ML IVPB SCH (17:33)
[2016-07-21] MEDS: Albuterol-Ipratrop 3 mg / 0.5 (3 ml) UD INH SCH ×4 (01:49→19:18)
[2016-07-21] MEDS: MethylPREDNISolone 40 mg Vial IVP SCH ×3 (05:40→21:24)
[2016-07-21] MEDS: guaiFENesin 600 mg ER Tab PO SCH ×2 (09:39→17:12)
[2016-07-21] MEDS: Enoxaparin 40 mg Syringe SC SCH (09:39)
[2016-07-21] MEDS: guaiFENesin 200 mg/10 ml Syrup UD PO PRN ×2 (14:19→21:24)
[2016-07-21] MEDS: Azithromycin 500 MG in Sodium Chloride 0.9% 250 ML IVPB SCH (17:12)
--- NOTE | 2016-07-21 23:44 | CP.PCM.PN ---
Subjective - Date & Time of Evaluation Date of Evaluation: 07/21/16 Time of Evaluation: 07:41 - Subjective Subjective: Pt seen & examined at bedside, is improving Objective - Vital Signs/Intake and Output Vital Signs (last 24 hours): Temp Pulse Resp BP Pulse Ox 97.9 F 76 20 123/71 94 L 07/21/16 15:35 07/21/16 15:35 07/21/16 15:35 07/21/16 15:35 07/21/16 15:35 Intake and Output: 07/21/16 07/22/16 18:59 06:59 Intake Total 700 570 Output Total 1 Balance 700 569 - Medications Medications: Current Medications Albuterol/Ipratropium (Duoneb 3 Mg/0.5 Mg (3 Ml) Ud) 3 ml INH RQ6 [facility] Enoxaparin Sodium (Lovenox) 40 mg SC DAILY [facility] Last Admin: 07/21/16 09:39 Dose: 40 mg Guaifenesin (Robitussin) 200 mg PO Q4H PRN PRN Reason: Cough and congestion Last Admin: 07/21/16 21:24 Dose: 200 mg Guaifenesin (Mucinex La) 600 mg PO BID [facility] Last Admin: 07/21/16 17:12 Dose: 600 mg Ceftriaxone Sodium 1 gm/ (Sodium Chloride) 100 mls @ 100 mls/hr IVPB DAILY [facility] Last Admin: 07/21/16 09:38 Dose: 100 mls/hr Azithromycin 500 mg/ Sodium (Chloride) 250 mls @ 167 mls/hr IVPB Q24H [facility] Last Admin: 07/21/16 17:12 Dose: 167 mls/hr Methylprednisolone (Solu-Medrol) 40 mg IVP Q8 [facility] Last Admin: 07/21/16 21:24 Dose: 40 mg Montelukast Sodium (Singulair) 10 mg PO DAILY [facility] Last Admin: 07/21/16 09:39 Dose: 10 mg Pantoprazole Sodium (Protonix Inj) 40 mg IVP DAILY [facility] Last Admin: 07/21/16 09:39 Dose: 40 mg Tiotropium [place] (Spiriva) 18 mcg IH RQD [facility] - Labs Labs: 07/20/16 10:05 07/20/16 10:05 - Constitutional Appears: No Acute Distress - Head Exam Head Exam: ATRAUMATIC, NORMAL INSPECTION, NORMOCEPHALIC - ENT Exam ENT Exam: Mucous Membranes Moist, Normal Exam - Neck Exam Neck Exam: Full ROM, Normal Inspection. absent: Lymphadenopathy - Respiratory Exam Respiratory Exam: Clear to Ausculation Bilateral, NORMAL BREATHING PATTERN - Cardiovascular Exam Cardiovascular Exam: REGULAR RHYTHM, +S1, +S2. absent: Murmur - GI/Abdominal Exam GI & Abdominal Exam: Soft, Normal Bowel Sounds. absent: Tenderness Assessment and Plan (1) COPD exacerbation Status: Acute
[2016-07-22] MEDS: Albuterol-Ipratrop 3 mg / 0.5 (3 ml) UD INH SCH ×3 (01:07→13:38)
[2016-07-22] MEDS ORDERED: Albuterol-Ipratrop 3 mg / 0.5 (3 ml) UD INH SCH (02:00)
[2016-07-22] MEDS: MethylPREDNISolone 40 mg Vial IVP SCH ×2 (05:28→13:32)
[2016-07-22] MEDS: guaiFENesin 600 mg ER Tab PO SCH ×2 (09:48→17:23)
[2016-07-22] MEDS: Enoxaparin 40 mg Syringe SC SCH (09:48)
[2016-07-22 15:19] VITALS: BP 123/73; PULSE 80; TEMP 98.7; O2SAT 94
--- NOTE | 2016-07-22 16:22 | CP.PCM.PN ---
Subjective - Date & Time of Evaluation Date of Evaluation: 07/22/16 Time of Evaluation: 08:40 - Subjective Subjective: Patient seen and examined. Sitting comfortably in no acute distress Cough and shortness of breath much improved Afebrile Objective - Vital Signs/Intake and Output Vital Signs (last 24 hours): Temp Pulse Resp BP Pulse Ox 98.7 F 80 20 123/73 94 L 07/22/16 15:17 07/22/16 15:17 07/22/16 15:17 07/22/16 15:17 07/22/16 15:17 Intake and Output: 07/22/16 07/22/16 06:59 18:59 Intake Total 670 700 Output Total 1 Balance 669 700 - Medications Medications: Current Medications Albuterol/Ipratropium (Duoneb 3 Mg/0.5 Mg (3 Ml) Ud) 3 ml INH RQ6 [facility] Last Admin: 07/22/16 13:38 Dose: 3 ml Enoxaparin Sodium (Lovenox) 40 mg SC DAILY [facility] Last Admin: 07/22/16 09:48 Dose: 40 mg Guaifenesin (Robitussin) 200 mg PO Q4H PRN PRN Reason: Cough and congestion Last Admin: 07/21/16 21:24 Dose: 200 mg Guaifenesin (Mucinex La) 600 mg PO BID [facility] Last Admin: 07/22/16 09:48 Dose: 600 mg Azithromycin 500 mg/ Sodium (Chloride) 250 mls @ 167 mls/hr IVPB Q24H [facility] Last Admin: 07/21/16 17:12 Dose: 167 mls/hr Methylprednisolone (Solu-Medrol) 40 mg IVP Q8 [facility] Last Admin: 07/22/16 13:32 Dose: 40 mg Montelukast Sodium (Singulair) 10 mg PO DAILY [facility] Last Admin: 07/22/16 09:48 Dose: 10 mg Pantoprazole Sodium (Protonix Inj) 40 mg IVP DAILY [facility] Last Admin: 07/22/16 09:48 Dose: 40 mg Tiotropium [place] (Spiriva) 18 mcg IH RQD [facility] - Labs Labs: 07/20/16 10:05 07/20/16 10:05 - Head Exam Head Exam: ATRAUMATIC, NORMOCEPHALIC - Eye Exam Eye Exam: Normal appearance - ENT Exam ENT Exam: Mucous Membranes Moist - Neck Exam Neck Exam: Normal Inspection - Respiratory Exam Respiratory Exam: Rhonchi - Cardiovascular Exam Cardiovascular Exam: REGULAR RHYTHM - GI/Abdominal Exam GI & Abdominal Exam: Soft, Normal Bowel Sounds Assessment and Plan (1) COPD exacerbation Assessment & Plan: Condition much improved Stable from pulmonary standpoint Discharge home on by mouth prednisone Status: Acute
--- NOTE | 2016-07-22 17:27 | CP.PCM.PN ---
Subjective - Date & Time of Evaluation Date of Evaluation: 07/22/16 Time of Evaluation: 11:00 - Subjective Subjective: alert, awake, no acute distress. Objective - Vital Signs/Intake and Output Vital Signs (last 24 hours): Temp Pulse Resp BP Pulse Ox 98.7 F 80 20 123/73 94 L 07/22/16 15:17 07/22/16 15:17 07/22/16 15:17 07/22/16 15:17 07/22/16 15:17 Intake and Output: 07/22/16 07/22/16 06:59 18:59 Intake Total 670 700 Output Total 1 Balance 669 700 - Medications Medications: Current Medications Albuterol/Ipratropium (Duoneb 3 Mg/0.5 Mg (3 Ml) Ud) 3 ml INH RQ6 [facility] Last Admin: 07/22/16 13:38 Dose: 3 ml Enoxaparin Sodium (Lovenox) 40 mg SC DAILY [facility] Last Admin: 07/22/16 09:48 Dose: 40 mg Guaifenesin (Robitussin) 200 mg PO Q4H PRN PRN Reason: Cough and congestion Last Admin: 07/21/16 21:24 Dose: 200 mg Guaifenesin (Mucinex La) 600 mg PO BID [facility] Last Admin: 07/22/16 17:23 Dose: 600 mg Azithromycin 500 mg/ Sodium (Chloride) 250 mls @ 167 mls/hr IVPB Q24H [facility] Last Admin: 07/21/16 17:12 Dose: 167 mls/hr Methylprednisolone (Solu-Medrol) 40 mg IVP Q8 [facility] Last Admin: 07/22/16 13:32 Dose: 40 mg Montelukast Sodium (Singulair) 10 mg PO DAILY [facility] Last Admin: 07/22/16 09:48 Dose: 10 mg Pantoprazole Sodium (Protonix Inj) 40 mg IVP DAILY [facility] Last Admin: 07/22/16 09:48 Dose: 40 mg Tiotropium [place] (Spiriva) 18 mcg IH RQD [facility] - Labs Labs: 07/20/16 10:05 07/20/16 10:05 Assessment and Plan - Assessment and Plan (Free Text) Assessment: Patient is seen and examined. Alert and orientedx3, no acute cough or sob. Cleared by DR Serrano for discharge.
[2016-07-22] MEDS: Azithromycin 500 MG in Sodium Chloride 0.9% 250 ML IVPB SCH (17:59)
--- NOTE | 2016-07-22 22:50 | CP.PCM.DIS ---
Provider - Provider Date of Admission: 07/16/16 14:33 Attending physician: Frankie Bolden MD Time Spent in preparation of Discharge (in minutes): 30 Diagnosis - Discharge Diagnosis (1) COPD exacerbation Status: Acute Hospital Course - Lab Results Lab Results: Most Recent Lab Values WBC 15.6 K/uL (4.8-10.8) H 07/20/16 10:05 RBC 4.81 Mil/uL (3.80-5.20) 07/20/16 10:05 Hgb 15.4 g/dL (11.0-16.0) 07/20/16 10:05 Hct 46.6 % (34.0-47.0) 07/20/16 10:05 MCV 96.9 fL (81.0-99.0) 07/20/16 10:05 MCH 32.0 pg (27.0-31.0) H 07/20/16 10:05 MCHC 33.1 g/dL (33.0-37.0) 07/20/16 10:05 RDW 14.8 % (11.5-14.5) H 07/20/16 10:05 Plt Count 149 K/uL (130-400) 07/20/16 10:05 MPV 9.2 fL (7.2-11.7) 07/20/16 10:05 Neut % (Auto) 61.8 % (50.0-75.0) 07/16/16 13:42 Lymph % (Auto) 29.4 % (20.0-40.0) 07/16/16 13:42 [place] % (Auto) 8.3 % (0.0-10.0) 07/16/16 13:42 Eos % (Auto) 0.3 % (0.0-4.0) 07/16/16 13:42 Baso % (Auto) 0.2 % (0.0-2.0) 07/16/16 13:42 Neut # 8.2 K/uL (1.8-7.0) H 07/16/16 13:42 Lymph # 3.9 K/uL (1.0-4.3) 07/16/16 13:42 [place] # 1.1 K/uL (0.0-0.8) H 07/16/16 13:42 Eos # 0.0 K/uL (0.0-0.7) 07/16/16 13:42 Baso # 0.0 K/uL (0.0-0.2) 07/16/16 13:42 Sodium 133 mmol/L (132-148) 07/20/16 10:05 Potassium 3.8 mmol/L (3.6-5.2) 07/20/16 10:05 Chloride 95 mmol/L (98-107) L 07/20/16 10:05 Carbon Dioxide 31 mmol/L (22-30) H 07/20/16 10:05 Anion Gap 11 (10-20) 07/20/16 10:05 BUN 20 mg/dL (7-17) H 07/20/16 10:05 Creatinine 0.5 MG/DL (0.7-1.2) L 07/20/16 10:05 Est GFR ( Amer) > 60 07/20/16 10:05 Est GFR (Non-Af Amer) > 60 07/20/16 10:05 Random Glucose 167 mg/dL (65-105) H 07/20/16 10:05 Calcium 8.3 mg/dl (8.6-10.4) L 07/20/16 10:05 Total Bilirubin 0.9 mg/dL (0.2-1.3) 07/16/16 13:42 AST 23 U/L (14-36) 07/16/16 13:42 ALT 26 U/L (9-52) 07/16/16 13:42 Alkaline Phosphatase 92 U/L (38-126) 07/16/16 13:42 Total Protein 6.6 g/dL (6.3-8.3) 07/16/16 13:42 Albumin 3.7 g/dL (3.5-5.0) 07/16/16 13:42 Globulin 2.9 gm/dL (2.2-3.9) 07/16/16 13:42 Albumin/Globulin Ratio 1.3 (1.0-2.1) 07/16/16 13:42 - Hospital Course Hospital Course: Pt seen aand examined, much improved, is for discharge Discharge Exam - Head Exam Head Exam: ATRAUMATIC, NORMOCEPHALIC - Eye Exam Eye Exam: EOMI, Normal appearance - ENT Exam ENT Exam: Mucous Membranes Moist - Respiratory Exam Respiratory Exam: Clear to PA & Lateral, NORMAL BREATHING PATTERN - Cardiovascular Exam Cardiovascular Exam: REGULAR RHYTHM, +S1, +S2 - GI/Abdominal Exam GI & Abdominal Exam: Normal Bowel Sounds Discharge Plan - Discharge Medications Prescriptions: Amoxicillin/Clavulanate [Augmentin 875 MG-125 MG] 1 tab PO BID #14 tab Fluticasone/Vilanterol [Breo Ellipta 100-25 Mcg INH] 1 each IH DAILY #1 blst.w.dev Methylprednisolone [Medrol Dose Pack (21 tabs)] 4 mg PO DAILY #21 mg Guaifenesin [Mucinex] 1,200 mg PO BID #30 tab.er.12h - Follow Up Plan Condition: STABLE Disposition: HOME/ ROUTINE Instructions: How to Stop Smoking (DC), How to Stop Smoking (GEN), Heart Healthy Diet (DC), Cigarette Smoking and Your Health (GEN), COPD (Chronic Obstructive Pulmonary Disease) (DC) Additional Instructions: Follow up in the office in 1 week. Continue with medrol dose pack, mucinex, augmentin and breo inhaler. Referrals: Reno Serrano MD [Staff Provider] - Frankie Bolden MD [Family Provider] -
== END 2016-07-22 18:15 | disposition home or self-care (01) | DRG 88 ==
LOC: C.ER 12:48 → C.9E 14:33 → C.6T 17:22
PROVIDERS: ADMIT Internal Medicine; ATTEND Internal Medicine
DX: J44.1 Chronic obstructive pulmonary disease with (acute) exacerbation (principal); I10 Essential (primary) hypertension; G40.909 Epilepsy, unspecified, not intractable, without status epilepticus; J45.909 Unspecified asthma, uncomplicated; F17.210 Nicotine dependence, cigarettes, uncomplicated; E78.00 Pure hypercholesterolemia, unspecified; Z87.01 Personal history of pneumonia (recurrent)

== ENCOUNTER 2016-08-24 16:45 | Observation (INO) | payer MEDICAID ==
[2016-08-24 16:45] VITALS: BMI 25.6
--- NOTE | 2016-08-24 17:55 | C.PDOC ---
History Of Present Illness Patient is a 51 y/o female that presents to the ED after falling backwards and hitting her head [employer]. Pt denies any LOC, but is complaining of neck pain, and back pain. Patient admits to drinking alcohol. Otherwise, denies any headache, dizziness, weakness, numbness, or any other associated symptoms at this time. - HPI Time Seen by Provider: 08/24/16 17:38 Chief Complaint (Nursing): Trauma History Per: Patient History/Exam Limitations: no limitations Injury Occurred (Timing): Just Before Arrival Location Of Injury: Posterior: Head Recent travel outside of the [place]: No Additional History Per: Patient Past Medical History Reviewed: Historical Data, Nursing Documentation, Vital Signs Vital Signs: Last Vital Signs Temp 98.7 F 08/24/16 17:05 Pulse 101 H 08/24/16 17:05 Resp 14 08/24/16 17:05 BP 116/73 08/24/16 17:05 Pulse Ox 91 L 08/24/16 19:47 - Medical History PMH: Asthma, COPD, HTN, Hypercholesterolemia, Pneumonia, Seizures Denies: HIV, Chronic Kidney Disease, Sexually Transmitted Disease - [employer] Procedures ALCOHOL DETOXIFICATION (07/04/14) INTRODUCE OF OTH THERAP SUBST INTO RESP TRACT, VIA OPENING (12/01/15) NEBULIZER THERAPY (05/12/14) Family History: States: Unknown Family Hx - Social History Hx Tobacco Use: Yes Hx Alcohol Use: Yes (occasionally) Hx Substance Use: No - Immunization History Hx Tetanus Toxoid Vaccination: No Hx Influenza Vaccination: Yes (2013) Hx Pneumococcal Vaccination: Yes Review Of Systems Except As Marked, All Systems Reviewed And Found Negative. Constitutional: Negative for: Fever, Chills Cardiovascular: Negative for: Chest Pain, Palpitations Respiratory: Negative for: Shortness of Breath Musculoskeletal: Positive for: Neck Pain, Back Pain Neurological: Negative for: Weakness, Numbness, Headache, Dizziness Physical Exam - Physical Exam Appears: Non-toxic, No Acute Distress, Other (intoxicated) Skin: Normal Color, Warm, Dry Head: Atraumatic, Normacephalic, No Tenderness, No Laceration, No Other (no hematoma) Eye(s): bilateral: Normal Inspection, EOMI Neck: Normal ROM, Midline Cervical Tenderness, No Paracervical Tenderness, Supple Chest: Symmetrical, No Tenderness Cardiovascular: Rhythm Regular, No Murmur Respiratory: Normal Breath Sounds, No Rales, No Rhonchi, No Wheezing Back: No Vertebral Tenderness, No Paraspinal Tenderness Extremity: Normal ROM Neurological/Psych: Oriented x3, No Normal Speech (slurred speech), Other ( responsive, follows command) ED Course And Treatment O2 Sat by Pulse Oximetry: 91 - CT Scan/US head CT Other Rad Studies (CT/US): Read By Radiologist, Radiology Report Reviewed CT/US Interpretation: FINDINGS: Brain: Ventricles are normal in size and configuration. There is no midline shift. There are no intraaxial. or extra- axial mass lesions or areas of hemorrhage. There are no abnormal fluid collections. Montgomery-white differentiation is maintained. Ventricles: See above. Bones: Cranial vault is intact. Soft tissues: unremarkable. Sinuses: There is no acute sinusitis. Ears and mastoids: Middle ears and mastoids are unremarkable. Orbits: Orbital contents are unremarkable. IMPRESSION: No acute intracranial abnormality Cervical spine CT Other Rad Studies (CT/US): Read By Radiologist, Radiology Report Reviewed CT/US Interpretation: FINDINGS: Vertebrae: Straightening of the normal cervical lordosis, as can sometimes be seen in the setting of. muscle spasm versus neck positioning. No evidence of acute displaced cervical fracture. Discs/spinal canal/neural foramina: Multilevel degenerative changes including disc osteophytes. MRI can be performed if clinically indicated for further evaluation. Findings probably worst at C4-C5. where there is probably moderate canal stenosis. Soft tissues: Unremarkable. Lung apices: Unremarkable as visualized. IMPRESSION: 1. Straightening of the normal cervical lordosis, as can sometimes be seen in the setting of muscle. spasm versus neck positioning. 2. No evidence of acute displaced cervical fracture. 3. Multilevel degenerative changes including disc osteophytes. MRI can be performed if clinically. indicated for further evaluation. Findings probably worst at C4-C5 where there is probably moderate. canal stenosis. Progress Note: Cervical spine, and head CT ordered and reviewed. Reevaluation Time: 00:07 Reassessment Condition: Unchanged (Patient continues to sleep quietly on stretcher in ED.) Disposition - Disposition Disposition Time: 00:07 Condition: STABLE - Clinical Impression Clinical Impression: ETOH abuse, Alcohol intoxication, Head injury - Scribe Statement The provider has reviewed the documentation as recorded by the Rhondaibnehemias Prince All medical record entries made by the Scribe were at my direction and personally dictated by me. I have reviewed the chart and agree that the record accurately reflects my personal performance of the history, physical exam, medical decision making, and the department course for this patient. I have also personally directed, reviewed, and agree with the discharge instructions and disposition. Physician Patient Turnover Patient Signed Over To: Benja Lomax Handoff Comments: pending sobriety
--- NOTE | 2016-08-24 19:09 | CT ---
EXAM: CT Head Without Intravenous Contrast CLINICAL HISTORY: 51 years old, female; Injury or trauma; Fall; Initial encounter; Abrasion; Scalp; Additional info: Head injury intoxicated TECHNIQUE: Axial computed tomography images of the head/brain without intravenous contrast. This CT exam was performed using one or more of the following dose reduction techniques: automated exposure control, adjustment of the mA and/or kV according to patient size, and/or use of iterative reconstruction technique. EXAM DATE/TIME: 08/24/2016 5:43 PM COMPARISON: CT - HEAD W/O CONTRAST 06/01/2015 9:29:25 PM FINDINGS: Brain: Ventricles are normal in size and configuration. There is no midline shift. There are no intra-axial or extra-axial mass lesions or areas of hemorrhage. There are no abnormal fluid collections. Montgomery-white differentiation is maintained. Ventricles: See above. Bones: Cranial vault is intact. Soft tissues: unremarkable Sinuses: There is no acute sinusitis. Ears and mastoids: Middle ears and mastoids are unremarkable Orbits: Orbital contents are unremarkable. IMPRESSION: No acute intracranial abnormality
[2016-08-25 05:40] VITALS: BP 123/72; PULSE 90; RESP 18; TEMP 98.2; O2SAT 95
--- NOTE | 2016-08-25 08:43 | CT ---
PROCEDURE: CT Cervical Spine without contrast HISTORY: <head injury, intoxicated, neck pain> COMPARISON: None available. TECHNIQUE: Axial computed tomography images were obtained of the cervical spine without the use of intravenous contrast. Coronal and sagittal reformatted images were created and reviewed. Radiation dose: Total exam DLP = 591.02 mGy-cm. This CT exam was performed using one or more of the following dose reduction techniques: Automated exposure control, adjustment of the mA and/or kV according to patient size, and/or use of iterative reconstruction technique. FINDINGS: VERTEBRAE: Vertebral bodies are maintained in height. There is grade 1 retrolisthesis at C5-6, likely degenerative in origin. There is straightening of the normal lordotic curvature of the cervical spine indicating possible muscular spasm. The atlantoaxial articulation and odontoid process are intact. DISCS/SPINAL CANAL/NEURAL FORAMINA: There is loss in height of the C4-5, C5-6 and C6-7 intervertebral disc spaces with associated osteophytes, consistent with degenerative disc disease. There is central spinal stenosis at these levels. Multilevel neural foraminal stenosis is noted at these affected levels. PARASPINAL SOFT TISSUES: Unremarkable. OTHER FINDINGS: None. IMPRESSION: No evidence of fracture. Grade 1 retrolisthesis C5-6 likely degenerative. Possible muscular spasm. Multilevel degenerative disc disease, multilevel neural foraminal stenosis and mild central spinal stenosis, C4-5 through C6-7. Preliminary interpretation of this examination was reported by [facility] at 7:15 p.m. on 08/24/2016. There is concurrence of this report with the preliminary interpretation.
== END 2016-08-25 01:10 | disposition home or self-care (01) ==
LOC: C.ER 16:45 → C.9OBSV 20:04
PROVIDERS: ADMIT Emergency Medicine; ATTEND Emergency Medicine
DX: F10.129 Alcohol abuse with intoxication, unspecified (principal); I10 Essential (primary) hypertension; S09.90XA Unspecified injury of head, initial encounter; W19.XXXA Unspecified fall, initial encounter; Z87.891 Personal history of nicotine dependence
CPT/HCPCS: 70450; 72125; 99285; G0378

== ENCOUNTER 2017-02-11 00:25 | Emergency (ER) | payer MEDICAID ==
[2017-02-11 00:26] VITALS: BMI 25.6
[2017-02-11] MEDS ORDERED: Albuterol-Ipratrop 3 mg / 0.5 (3 ml) UD INH STA (01:14)
[2017-02-11] MEDS ORDERED: Albuterol-Ipratrop 3 mg / 0.5 (3 ml) UD ONE ×2 (01:25→01:47)
[2017-02-11 01:49] LABS: BASO # 0.1 K/uL (0.0-0.2); EOS # 0.3 K/uL (0.0-0.7); EOS % 3.6 % (0.0-4.0); HEMOGLOBIN 15.7 g/dL (11.0-16.0); LYMPH # 3.1 K/uL (1.0-4.3); LYMPH % 34.7 % (20.0-40.0); MEAN CELL VOLUME 98.9 fL (81.0-99.0); MEAN CORPUSCULAR HEMOGLOBIN 34.5 pg (27.0-31.0); MEAN CORPUSCULAR HGB CONC 34.8 g/dL (33.0-37.0); MEAN PLATELET VOLUME 8.7 fL (7.2-11.7); MONO % 11.7 % (0.0-10.0); NEUT # 4.4 K/uL (1.8-7.0); NRBC % 0.1 % (0.0-2.0); RBC 4.54 Mil/uL (3.80-5.20); RED CELL DISTRIBUTION WIDTH 14.2 % (11.5-14.5); WHITE BLOOD COUNT 8.9 K/uL (4.8-10.8)
[2017-02-11 02:15] LABS: ALB/GLOB RATIO 1.5 (1.0-2.1); ALBUMIN 3.8 g/dL (3.5-5.0); ALT/SGPT 23 U/L (9-52); AST/SGOT 33 U/L (14-36); BLOOD UREA NITROGEN 10 mg/dL (7-17); CALCIUM 8.3 mg/dl (8.6-10.4); GFR AFRICAN-AMERICAN > 60; GFR NON-AFRICAN AMERICAN > 60
--- NOTE | 2017-02-11 02:38 | C.PDOC ---
History Of Present Illness 51 year old female presents to the ER with a complaint of worsening productive cough and SOB that began tonight. Denies fever, chills, nausea, vomiting, or chest pain. Patient lives at a [facility], she states she ran out of her advair and her insurance will not cover it anymore. Patient has a Hx of COPD and asthma; has smoked 1 pack of cigarettes a day continuously for the past 30 years. She is on advair, singulair, and spiriva. Chief Complaint (Nursing): Shortness Of Breath History Per: Patient History/Exam Limitations: no limitations Current Symptoms Are (Timing): Still Present Current Respiratory Medications: See Home Med List, Other (Advair, singulair, spiriva) Associated Symptoms: Productive Cough, Other. denies: Fever, Chills, Chest Pain Recent travel outside of the [place]: No Past Medical History Reviewed: Historical Data, Nursing Documentation, Vital Signs Vital Signs: Last Vital Signs Temp 98 F 02/11/17 06:46 Pulse 88 02/11/17 06:46 Resp 20 02/11/17 06:46 BP 130/90 02/11/17 06:46 Pulse Ox 97 02/11/17 06:46 - Medical History PMH: Asthma, COPD, HTN, Hypercholesterolemia, Pneumonia, Seizures - [facility] Procedures ALCOHOL DETOXIFICATION (07/04/14) INTRODUCE OF OTH THERAP SUBST INTO RESP TRACT, VIA OPENING (12/01/15) NEBULIZER THERAPY (05/12/14) Family History: States: Unknown Family Hx - Social History Hx Tobacco Use: Yes Hx Alcohol Use: Yes (occasionally) Hx Substance Use: No - Immunization History Hx Tetanus Toxoid Vaccination: No Hx Influenza Vaccination: Yes (2014) Hx Pneumococcal Vaccination: Yes Review Of Systems Constitutional: Negative for: Fever, Chills Cardiovascular: Negative for: Chest Pain, Palpitations Respiratory: Positive for: Cough, Shortness of Breath, Sputum Gastrointestinal: Negative for: Nausea, Vomiting Physical Exam - Physical Exam Appears: Non-toxic, No Acute Distress Skin: Normal Color, Warm, Dry Head: Atraumatic, Normacephalic Eye(s): bilateral: Normal Inspection Oral Mucosa: Moist Throat: Normal, No Erythema, No Exudate Neck: Normal, Supple Chest: Symmetrical, No Tenderness Cardiovascular: Rhythm Regular Respiratory: No Rales, No Rhonchi, Wheezing (Diffuse expiratory throughout all singleton) Gastrointestinal/Abdominal: Soft, No Tenderness Neurological/Psych: Oriented x3, Normal Speech ED Course And Treatment - Laboratory Results Result Diagrams: 02/11/17 01:37 02/11/17 01:37 O2 Sat by Pulse Oximetry: 96 (Room air) Pulse Ox Interpretation: Normal - Radiology CXR: Interpreted by Me, Viewed By Me CXR Interpretation: Yes: No Acute Disease. No: Infiltrates, Other (Effusions) Medical Decision Making Medical Decision Making: Plan: * CMP * CBC * CXR * Flu swab * Duoneb Disposition - Disposition [place] [facility] [place] [facility] [place] [facility] [Outside] [facility] [place] [Outside] Disposition: HOME/ ROUTINE Disposition Time: 20:38 Condition: STABLE Prescriptions: Albuterol HFA [Ventolin HFA 90 mcg/actuation (8 g)] 0.09 mg IH Q6 #1 unit Forms: [email or web address] (Montserratian) - Clinical Impression Clinical Impression: COPD exacerbation, Asthma with COPD with exacerbation - Scribe Statement The provider has reviewed the documentation as recorded by the Scribe Pato Self All medical record entries made by the Scribe were at my direction and personally dictated by me. I have reviewed the chart and agree that the record accurately reflects my personal performance of the history, physical exam, medical decision making, and the department course for this patient. I have also personally directed, reviewed, and agree with the discharge instructions and disposition.
[2017-02-11 06:47] VITALS: BP 130/90; PULSE 88; RESP 20; TEMP 98
--- NOTE | 2017-02-11 08:48 | RAD ---
HISTORY: SOB COMPARISON: 07/20/2016 TECHNIQUE: Chest PA and lateral FINDINGS: LUNGS: No active pulmonary disease. PLEURA: No significant pleural effusion identified. No pneumothorax apparent. CARDIOVASCULAR: Normal. OSSEOUS STRUCTURES: No significant abnormalities. VISUALIZED UPPER ABDOMEN: Normal. OTHER FINDINGS: None. IMPRESSION: No active disease.
[2017-03-02 20:38] VITALS: O2SAT 96
== END 2017-02-11 06:45 | disposition home or self-care (01) ==
LOC: C.ER 00:25
DX: J44.1 Chronic obstructive pulmonary disease with (acute) exacerbation (principal); Z72.0 Tobacco use

== ENCOUNTER 2017-03-19 14:55 | Emergency (ER) | payer MEDICAID ==
[2017-03-19 15:28] VITALS: BMI 28.3
--- NOTE | 2017-03-19 17:32 | C.PDOC ---
History Of Present Illness 51 yr old female with PMHx of COPD, presents to the ER requesting alcohol detox. patient reports baseline wheezing and SOB, no new symptoms. Patient reports she drinks daily. Denies fever, chills, chest pain, nausea, vomiting, abdominal pain, weakness or numbness. Time Seen by Provider: 03/19/17 17:07 Chief Complaint (Nursing): Shortness Of Breath History Per: Patient History/Exam Limitations: no limitations Onset/Duration Of Symptoms: Days Current Symptoms Are (Timing): Still Present Past Medical History Reviewed: Historical Data, Nursing Documentation, Vital Signs Vital Signs: Last Vital Signs Temp 98.5 F 03/19/17 18:15 Pulse 88 03/19/17 18:15 Resp 18 03/19/17 18:15 BP 110/66 03/19/17 18:15 Pulse Ox 88 L 03/19/17 18:41 - Medical History PMH: Asthma, COPD, HTN, Hypercholesterolemia, Pneumonia, Seizures - [facility] Procedures ALCOHOL DETOXIFICATION (07/04/14) INTRODUCE OF OTH THERAP SUBST INTO RESP TRACT, VIA OPENING (12/01/15) NEBULIZER THERAPY (05/12/14) Family History: States: No Known Family Hx - Social History Hx Tobacco Use: Yes Hx Alcohol Use: Yes (occasionally) Hx Substance Use: No - Immunization History Hx Tetanus Toxoid Vaccination: No Hx Influenza Vaccination: Yes (2013) Hx Pneumococcal Vaccination: Yes Review Of Systems Except As Marked, All Systems Reviewed And Found Negative. Constitutional: Negative for: Fever, Chills Cardiovascular: Negative for: Chest Pain Respiratory: Positive for: Shortness of Breath (baseline), Wheezing (baseline) Gastrointestinal: Negative for: Nausea, Vomiting, Abdominal Pain Neurological: Negative for: Weakness, Numbness Physical Exam - Physical Exam Appears: Non-toxic, No Acute Distress, Unkempt Skin: Warm, Dry Head: Atraumatic, Normacephalic Eye(s): bilateral: Normal Inspection, PERRL, EOMI Oral Mucosa: Moist Neck: Supple Chest: Symmetrical Cardiovascular: Rhythm Regular, No Murmur Respiratory: Normal Breath Sounds, No Rales, No Rhonchi, Wheezing (bilateral) Gastrointestinal/Abdominal: Normal Exam, Soft, No Tenderness, No Guarding, No Rebound Back: Normal Inspection, No CVA Tenderness Extremity: Normal ROM, No Swelling Neurological/Psych: Oriented x3, Normal Speech Gait: Steady ED Course And Treatment O2 Sat by Pulse Oximetry: 88 (RA) Pulse Ox Interpretation: Normal Medical Decision Making Medical Decision Making: PLAN: * Albuterol INH Feels better after duonebs Bonnie was made aware of lack of detox beds and given number to call for prescreen. She is feeling better after duoneb and requesting discharge. She ambulated out of ED without issue. Disposition - Disposition Disposition: HOME/ ROUTINE Disposition Time: 17:31 Condition: GOOD Additional Instructions: Call prescreen number or visit daily to inquire about detox beds. Return to ED if condition worsens. Instructions: Abuse of Alcohol (ED) Forms: [employer] (Danish) - Clinical Impression Clinical Impression: Alcohol abuse - Scribe Statement The provider has reviewed the documentation as recorded by the Rhondaibe Mattie Rich Provider Attestation: All medical record entries made by the Scribe were at my direction and personally dictated by me. I have reviewed the chart and agree that the record accurately reflects my personal performance of the history, physical exam, medical decision making, and the department course for this patient. I have also personally directed, reviewed, and agree with the discharge instructions and disposition.
[2017-03-19] MEDS ORDERED: Albuterol-Ipratrop 3 mg / 0.5 (3 ml) UD INH STA (17:34)
[2017-03-19] MEDS ORDERED: Albuterol-Ipratrop 3 mg / 0.5 (3 ml) UD ONE (17:39)
[2017-03-19 18:40] VITALS: BP 110/66; PULSE 88; RESP 18; TEMP 98.5
[2017-03-19 18:41] VITALS: O2SAT 88
== END 2017-03-19 18:41 | disposition home or self-care (01) ==
LOC: C.ER 14:55
DX: F10.10 Alcohol abuse, uncomplicated (principal); E78.00 Pure hypercholesterolemia, unspecified; I10 Essential (primary) hypertension; J44.9 Chronic obstructive pulmonary disease, unspecified; Z72.0 Tobacco use